=== PATIENT | male | born 1935 | race Caucasian/White ===

== ENCOUNTER 2018-12-20 05:44 | Inpatient (IN) | payer MEDICARE ==
[2018-12-19 14:31] VITALS: BMI 28.5
[2018-12-20 06:55] LABS: Anion Gap 13 mmol/L (10-20); BUN (Urea Nitrogen) 16 mg/dL (8.4-25.7); Calc. Creatinine Clearance 84 mL/min (70-130); Calcium 9.2 mg/dL (7.8-10.44); Carbon Dioxide 24 mmol/L (23-31); Chloride 105 mmol/L (98-107); Estimated GFR-MDRD 83; Glucose 92 mg/dL (83-110); Potassium 4.5 mmol/L (3.5-5.1); Sodium 137 mmol/L (136-145)
[2018-12-20 07:28] LABS: #Eosinphils 0.1 thou/uL (0.0-0.7); #Lymphocytes 1.7 thou/uL (1.20-3.40); #Monocytes 0.5 thou/uL (0.11-0.59); #Neutrophils 4.6 thou/uL (1.40-6.50); %Basophils 0.7 % (0.0-1.0); %Eosinophils 1.2 % (0.0-10.0); %Lymphocytes 25.1 % (21.0-51.0); %Monocytes 6.8 % (0.0-10.0); %Neutrophils 66.2 % (42.0-75.0); Hemoglobin 16.7 g/dL (14.0-18.0); MDiff Complete? YES; Macrocytosis SLIGHT = 6-15 cells (100X) (0-5/hpf); Mean Corpuscular HGB CONC 33.3 g/dL (32.0-36.0); Mean Corpuscular Hemoglobin 33.5 pg (27.0-31.0); Mean Platelet Volume 7.3 fL (7.4-10.4); Platelet Count 118 thou/uL (130-400); Platelet Morphology Comment Appears Decreased; RBC Distribution Width 11.5 % (11.5-14.5); Red Blood Cell (RBC) Count 4.99 mill/uL (4.70-6.10); Small Platelets SLIGHT; White Blood Cell (WBC) Count 6.9 thou/uL (4.8-10.8)
[2018-12-20] MEDS ORDERED: Heparin 5,000 UNITS/ML VIAL ONE (09:45)
[2018-12-20] MEDS ORDERED: Protamine Sulfate 50 MG/5 ML VIAL ONE (09:45)
[2018-12-20] MEDS ORDERED: Iopamidol 370 76% 50 ML VIAL FS ONE (09:51)
[2018-12-20] MEDS ORDERED: Fentanyl 100 MCG/2 ML VIAL ONE ×3 (10:17→15:22)
[2018-12-20] MEDS ORDERED: Phenylephrine HCL 10 MG/ML VIAL ONE (10:17)
--- NOTE | 2018-12-20 10:18 | OP ---
DATE OF PROCEDURE: 12/20/2018 PREOPERATIVE DIAGNOSES: Severe peripheral artery disease, right leg with rest pain and nonhealing ulcer. PROCEDURE PERFORMED: Right lower extremity arteriography. ANESTHESIA: 1% lidocaine. DESCRIPTION OF PROCEDURE: After prepping and draping the left groin, ultrasound-guided puncture of the common femoral artery was carried out. Wire was passed. Contra catheter advanced into the aorta and then the wire directed into the right iliac system, where the Contra catheter was advanced into the right common femoral artery. Following this, runoff of the right leg was obtained with multiple injections. FINDINGS: The patient's superficial femoral artery was occluded at its origin and essentially did not reconstitute. There was very faint visualization of an infrapopliteal artery with a peroneal artery that appeared to go about to the mid calf. At which point, it could not be visualized and similarly with an anterior tibial. The posterior tibial was not visualized and no vessels could be visualized at the foot due to the very minimal flow. Following this, the catheter was removed over a wire, sheath removed, pressure held, and the patient tolerated the procedure well with a 2.8 minutes of fluoroscopy and 28 mL of contrast. Job ID: [id number]
[2018-12-20] MEDS ORDERED: Heparin 10,000 UNITS/ 10 ML VIAL ONE (13:43)
[2018-12-20] MEDS ORDERED: PROPOFOL 200 MG/20 ML VIAL ONE (13:43)
[2018-12-20] MEDS ORDERED: Lidocaine 1% PF 5 ML VIAL ONE (13:43)
[2018-12-20] MEDS ORDERED: Ondansetron PF 4 MG/2 ML Vial ONE (13:43)
[2018-12-20] MEDS ORDERED: Glycopyrrolate 0.2 MG/ML 5 ML SYRINGE ONE (13:43)
[2018-12-20] MEDS ORDERED: PHENYLEPHRINE-NS 100 MCG/ML 10 ML SYRINGE ONE (13:43)
[2018-12-20] MEDS ORDERED: Rocuronium Bromide 10 MG/ML (10ML VIAL) ONE (13:43)
[2018-12-20] MEDS ORDERED: Promethazine HCl 25 MG/ML VIAL SLOW IVP PRN (14:12)
[2018-12-20] MEDS ORDERED: HYDROmorphone 2 MG/ML VIAL SLOW IVP PRN (14:12)
[2018-12-20] MEDS ORDERED: Promethazine HCl 25 MG/ML VIAL IM PRN (14:12)
[2018-12-20] MEDS ORDERED: hydrALAZINE 20 MG/ML VIAL ONE (15:08)
[2018-12-20] MEDS ORDERED: Ondansetron PF 4 MG/2 ML Vial IVP PRN (16:55)
[2018-12-20] MEDS ORDERED: Insulin Regular 300 UNITS/3 ML VIAL SC PRN (16:55)
[2018-12-20] MEDS ORDERED: Nitroglycerin 0.4 MG TAB (25 Tab Bottle) SL PRN (16:55)
[2018-12-20] MEDS ORDERED: hydrALAZINE 20 MG/ML VIAL SLOW IVP PRN (16:55)
[2018-12-20] MEDS ORDERED: Sodium Chloride 0.9% 1,000 ML IV SCH (16:55)
[2018-12-20] MEDS: Ketorolac Tromethamine 30 MG/ML VIAL IVP PRN ×2 (18:11→23:28)
[2018-12-20] MEDS: traMADol HCl 50 MG TAB PO PRN (21:22)
[2018-12-20] MEDS: Pregabalin 75 MG CAP PO SCH (21:23)
[2018-12-20] MEDS: Acetaminophen 325 MG TAB PO PRN (21:23)
[2018-12-20] MEDS: busPIRone HCl 5 MG TAB PO SCH (21:24)
[2018-12-20] MEDS: Tamsulosin HCl 0.4 MG CAP PO SCH (21:24)
[2018-12-20] MEDS: Fentanyl 100 MCG/2 ML VIAL SLOW IVP PRN ×2 (21:58→23:43)
[2018-12-20] MEDS: Cepastat Lozenges 1 LOZ PO PRN (23:49)
[2018-12-21] MEDS: Acetaminophen 325 MG TAB PO PRN ×2 (00:57→10:30)
[2018-12-21] MEDS: Cepastat Lozenges 1 LOZ PO PRN (00:58)
[2018-12-21] MEDS: Fentanyl 100 MCG/2 ML VIAL SLOW IVP PRN (03:22)
[2018-12-21] MEDS: traMADol HCl 50 MG TAB PO PRN ×3 (05:42→20:29)
[2018-12-21 06:43] LABS: #Eosinphils 0.1 thou/uL (0.0-0.7); #Lymphocytes 1.4 thou/uL (1.20-3.40); #Monocytes 0.6 thou/uL (0.11-0.59); #Neutrophils 3.9 thou/uL (1.40-6.50); %Basophils 0.4 % (0.0-1.0); %Eosinophils 1.5 % (0.0-10.0); %Lymphocytes 22.7 % (21.0-51.0); %Monocytes 9.3 % (0.0-10.0); %Neutrophils 66.1 % (42.0-75.0); Hemoglobin 14.6 g/dL (14.0-18.0); Mean Corpuscular HGB CONC 32.9 g/dL (32.0-36.0); Mean Platelet Volume 7.2 fL (7.4-10.4); Platelet Count 103 thou/uL (130-400); RBC Distribution Width 11.3 % (11.5-14.5); Red Blood Cell (RBC) Count 4.42 mill/uL (4.70-6.10)
[2018-12-21 06:50] LABS: Anion Gap 9 mmol/L (10-20); BUN (Urea Nitrogen) 12 mg/dL (8.4-25.7); Calc. Creatinine Clearance 71 mL/min (70-130); Calcium 8.4 mg/dL (7.8-10.44); Carbon Dioxide 26 mmol/L (23-31); Chloride 107 mmol/L (98-107); Estimated GFR-MDRD 68; Glucose 104 mg/dL (83-110); Potassium 4.2 mmol/L (3.5-5.1); Sodium 138 mmol/L (136-145)
[2018-12-21] MEDS: Pregabalin 75 MG CAP PO SCH ×2 (08:22→20:24)
[2018-12-21] MEDS: Aspirin Chewable 81 MG TAB PO SCH (08:23)
[2018-12-21] MEDS: busPIRone HCl 5 MG TAB PO SCH ×2 (08:23→20:22)
[2018-12-21] MEDS: Tamsulosin HCl 0.4 MG CAP PO SCH ×2 (08:23→20:25)
[2018-12-21] MEDS: Lisinopril 2.5 MG TAB PO SCH (08:23)
[2018-12-21] MEDS: Ketorolac Tromethamine 30 MG/ML VIAL IVP PRN (08:25)
--- NOTE | 2018-12-21 08:26 | OP ---
DATE OF PROCEDURE: 12/20/2018 PREOPERATIVE DIAGNOSIS: Peripheral artery disease, right lower extremity. PROCEDURE PERFORMED: Right femoral to infrageniculate popliteal artery bypass with non-reversed saphenous vein. ANESTHESIA: General. ESTIMATED BLOOD LOSS: 100. DESCRIPTION OF PROCEDURE: After adequate anesthesia had been obtained, ultrasound had been used to zenia the leg. Saphenous vein was exposed just above the knee and then, the incision below the knee medially was used to expose the vein as well as expose the popliteal artery. Following this, endovascular vein harvest of the saphenous vein was performed up to the groin. At which time, a right groin incision was made and the common femoral artery was dissected out. There were significant inflammatory changes in this region. After dissecting out the common femoral artery, no attempt was made to isolate the profunda or superficial femoral artery. Saphenous vein was ligated at the saphenofemoral junction and then, the vein removed and the branches were tied. Following this, a valvulotome was used to disrupt the valves. The infrageniculate incision was then explored and posterior to the knee, a tunnel was created and connected with the incision just above the knee, mobilizing the muscle to allow the vein to pass posterior to the knee over the top of the muscle. Following this, the patient was heparinized and the vein was anastomosed proximally on the common femoral artery with a running 6-0 Prolene suture. It was then passed through the tunnel with a tunneler keeping the vein oriented. It was then passed posterior to the knee where the distal anastomosis was then completed to the popliteal artery. Following completion of this, there was a good pulse in the popliteal artery. Heparin was partially reversed with protamine. The wounds were irrigated and closed in layers. The patient is to be taken to the recovery room in guarded condition. Job ID: [id number]
[2018-12-21] MEDS ORDERED: Prevnar 13-Val Conj/PF 0.5 ML SYRINGE IM ONE (09:00)
[2018-12-22 06:15] LABS: #Eosinphils 0.2 thou/uL (0.0-0.7); #Lymphocytes 1.3 thou/uL (1.20-3.40); #Monocytes 0.5 thou/uL (0.11-0.59); #Neutrophils 4.2 thou/uL (1.40-6.50); %Basophils 0.2 % (0.0-1.0); %Eosinophils 2.9 % (0.0-10.0); %Lymphocytes 20.5 % (21.0-51.0); %Monocytes 7.9 % (0.0-10.0); %Neutrophils 68.5 % (42.0-75.0); Hemoglobin 14.4 g/dL (14.0-18.0); Mean Corpuscular Hemoglobin 33.6 pg (27.0-31.0); Mean Platelet Volume 7.4 fL (7.4-10.4); Platelet Count 99 thou/uL (130-400); RBC Distribution Width 11.4 % (11.5-14.5); Red Blood Cell (RBC) Count 4.29 mill/uL (4.70-6.10); White Blood Cell (WBC) Count 6.1 thou/uL (4.8-10.8)
[2018-12-22 06:33] LABS: Anion Gap 11 mmol/L (10-20); BUN (Urea Nitrogen) 11 mg/dL (8.4-25.7); Calc. Creatinine Clearance 86 mL/min (70-130); Calcium 8.6 mg/dL (7.8-10.44); Carbon Dioxide 25 mmol/L (23-31); Chloride 106 mmol/L (98-107); Estimated GFR-MDRD 85; Glucose 99 mg/dL (83-110); Potassium 4.4 mmol/L (3.5-5.1); Sodium 138 mmol/L (136-145)
[2018-12-22 07:38] VITALS: BP 149/77; TEMP 97.7
[2018-12-22] MEDS: Pregabalin 75 MG CAP PO SCH (08:17)
[2018-12-22] MEDS: busPIRone HCl 5 MG TAB PO SCH (08:17)
[2018-12-22] MEDS: Aspirin Chewable 81 MG TAB PO SCH (08:17)
[2018-12-22] MEDS: Lisinopril 2.5 MG TAB PO SCH (08:18)
[2018-12-22] MEDS: Tamsulosin HCl 0.4 MG CAP PO SCH (08:18)
--- NOTE | 2018-12-22 09:16 | DIS ---
DATE OF ADMISSION: 12/20/2018 DATE OF DISCHARGE: 12/22/2018 HOSPITAL COURSE: This is an 83-year-old gentleman with ischemic rest pain in his foot on the right. He had [facility] however, review of these films did not demonstrate any bypassable target. He underwent CT scanning in [place] and this showed faint visualization of a popliteal and proximal peroneal and proximal anterior tibial, but runoff was not clearly documented. He was therefore brought to the hospital, where he underwent angiography of the right leg demonstrating a slow fill of his popliteal, peroneal, and anterior tibial to the mid distal calf. Posterior tibial never visualized. He was taken to the operating room that same day, where he underwent a right femoral to infrageniculate popliteal artery bypass with non-reversed saphenous vein. Postoperatively, he had a weak, but present palpable dorsalis pedis pulse suggesting the anterior tibial, it was possibly patent into the foot or had good collateral flow. He will be discharged today on 12/22, on his admitting medicines and a prescription for tramadol will be sent to his pharmacy in [place]. Discharge and followup instructions have been given and wound care instructions as well. Job ID: [id number]
== END 2018-12-22 10:35 | disposition home or self-care (01) | DRG 254 ==
LOC: CCL 05:44 → SURG B 15:17
PROVIDERS: ADMIT Thoracic Surgery (Cardiothoracic Vascular Surgery); ATTEND Thoracic Surgery (Cardiothoracic Vascular Surgery)
PROC: 041K09L Bypass Right Femoral Artery to Popliteal Artery with Autologous Venous Tissue, Open Approach (ICD-10-PCS; principal; 2018-12-20)
PROC: 06BP0ZZ Excision of Right Saphenous Vein, Open Approach (ICD-10-PCS; 2018-12-20)
PROC: B41F1ZZ Fluoroscopy of Right Lower Extremity Arteries using Low Osmolar Contrast (ICD-10-PCS; 2018-12-20)
DX: I70.221 Atherosclerosis of native arteries of extremities with rest pain, right leg (principal); M21.372 Foot drop, left foot; M21.371 Foot drop, right foot; I10 Essential (primary) hypertension; Z88.5 Allergy status to narcotic agent; Z88.7 Allergy status to serum and vaccine; Z88.8 Allergy status to other drugs, medicaments and biological substances; Z79.82 Long term (current) use of aspirin; J44.9 Chronic obstructive pulmonary disease, unspecified; N40.0 Benign prostatic hyperplasia without lower urinary tract symptoms; Z85.118 Personal history of other malignant neoplasm of bronchus and lung; Z85.828 Personal history of other malignant neoplasm of skin; M19.90 Unspecified osteoarthritis, unspecified site; Z98.1 Arthrodesis status; Z90.2 Acquired absence of lung [part of]; Z90.79 Acquired absence of other genital organ(s)
CPT/HCPCS: 36415; 36416; 75710; 76942; 80048; 85025; 86850; 86900; 86901; C1769; J0360; J1644; J1885; J2001; J2370; J2405; J2704; J2720; J3010; Q9967

== ENCOUNTER 2019-11-10 09:28 | Outpatient (CLI) | payer MEDICARE ==
--- NOTE | 2019-11-10 11:49 | PET ---
Radionucleotide PET scan with CT attenuation correction HISTORY: Left upper lobe lung cancer. New mass. Restaging. COMPARISON: 03/10/2016. FINDINGS: Physiologic uptake of radiotracer throughout the enteric system and along each urinary trac t. Lobular, somewhat ill-defined solid mass within the posterior aspect of the right upper lobe is 3.6 c m x 2.7 cm greatest diameters. Maximum SUV 19.6. At the anterior lateral aspect of the right lung apex, a linear area of nonmass-like hypermetabolic activity shows a maximum SUV of 5.5. Multiple enlarged hypermetabolic lymph nodes. Prevascular 20.3 and 25.6. Pretracheal 23.8. Right hilum 9.7. Right supraclavicular 8.3. Right paratracheal 23.8. Within the dome of the liver is an ill-defined hypodense mass estimated at 6.3 cm diameter. Hypermeta bolic activity maximum SUV 32.5. Borderline enlarged right peripancreatic lymph node just posterior to the pancreatic neck shows maxim um actually 5.7. Borderline enlarged lymph node immediately posterior to the second portion duodenum maximum SUV 4.1. Prominent calcification throughout the arterial structures. Diverticula of the colon without adjacent inflammation. IMPRESSION: Large hypermetabolic masses of the long right upper lobe and the liver. It is not clear w hich is the primary and which is the metastatic disease. The liver lesion would be amenable to CT-guided biopsy if needed. Neoplastic adenopathy of the mediastinum and central abdomen. Atherosclerosis. Diverticulosis.
== END 2019-11-10 09:29 | disposition home or self-care (01) ==
LOC: PET 09:28
PROVIDERS: ATTEND Internal Medicine Hematology & Oncology
DX: C34.12 Malignant neoplasm of upper lobe, left bronchus or lung (principal); R91.8 Other nonspecific abnormal finding of lung field; R16.0 Hepatomegaly, not elsewhere classified; I70.0 Atherosclerosis of aorta; K57.30 Diverticulosis of large intestine without perforation or abscess without bleeding; R59.0 Localized enlarged lymph nodes
CPT/HCPCS: 78815; A9552

== ENCOUNTER 2019-12-08 08:39 | Day surgery (SDC) | payer MEDICARE ==
[2019-12-07 14:23] VITALS: BMI 28.6
[2019-12-08 09:07] LABS: PTT 33.3 SEC (22.9-36.1); Prothrombin Time 13.6 SEC (12.0-14.7)
[2019-12-08] MEDS ORDERED: Fentanyl 100 MCG/2 ML VIAL ONE (09:53)
[2019-12-08] MEDS ORDERED: Midazolam HCl 2 mg/2 ml Vial ONE (09:53)
[2019-12-08] MEDS ORDERED: Sodium Bicarbonate 2.5 MEQ/5 ML VIAL ONE (09:54)
[2019-12-08 10:08] LABS: #Basophils 0.1 thou/uL (0.0-0.2); #Eosinphils 1.5 thou/uL (0.0-0.7); #Lymphocytes 1.5 thou/uL (1.20-3.40); #Monocytes 0.7 thou/uL (0.11-0.59); #Neutrophils 6.7 thou/uL (1.40-6.50); %Basophils 0.5 % (0.0-1.0); %Eosinophils 13.9 % (0.0-10.0); %Lymphocytes 14.7 % (21.0-51.0); %Monocytes 6.7 % (0.0-10.0); %Neutrophils 64.2 % (42.0-75.0); Hemoglobin 16.2 g/dL (14.0-18.0); Mean Corpuscular HGB CONC 32.8 g/dL (32.0-36.0); Mean Corpuscular Hemoglobin 30.7 pg (27.0-31.0); Mean Corpuscular Volume 93.7 fL (78.0-98.0); Mean Platelet Volume 7.4 fL (7.4-10.4); Platelet Count 128 thou/uL (130-400); RBC Distribution Width 12.9 % (11.5-14.5); Red Blood Cell (RBC) Count 5.29 mill/uL (4.70-6.10); White Blood Cell (WBC) Count 10.4 thou/uL (4.8-10.8)
--- NOTE | 2019-12-08 11:09 | RAD ---
Chest 2 views inspiratory X. Bill HISTORY: Biopsy. Lung mass. COMPARISON: 11/02/2019. FINDINGS: Cardiac silhouette is magnified by projection. Extensive postoperative changes of left galen thorax with atelectasis at the left base. Lobular mass at the right lower lobe is evident. No evidence of pneumothorax.
--- NOTE | 2019-12-08 13:01 | RAD ---
XR Chest Insp/Exp History: Liver biopsy. Possible pneumothorax. Comparison: Radiograph same day Findings: No significant pneumothorax is appreciated. Right lung mass is similar. Small left effusion . Impression: No pneumothorax appreciated.
--- NOTE | 2019-12-08 14:30 | CT ---
CT-guided liver mass biopsy Conscious sedation: At least 40 minutes were spent with the patient for the conscious sedation proced ure. HISTORY: Liver mass. Lung mass. Lung cancer. FINDINGS: After explaining the procedure and answering all questions, the subtle hypoechoic mass with in the liver was again visualized with CT. Sterile technique, buffered local anesthesia, CT guidance, conscious sedation, and the right lateral approach were used to carefully advance a 17-gaug e trocar needle into the heterogeneous liver mass. Position was confirmed with CT. A total of 3 18-gauge core biopsy specimens were obtained and submitted to Dr. Castellanos from pathology fo r confirmation of specimen adequacy. Needle was removed. No evidence of complication. Patient tolerated the procedure well and was eventua lly dismissed in good condition. IMPRESSION: Technically successful CT-guided liver mass biopsy. Pathology is pending.
== END 2019-12-08 13:10 | disposition home or self-care (01) ==
LOC: RAD 08:39
PROVIDERS: ATTEND Internal Medicine Hematology & Oncology
PROC: 0FB13ZX Excision of Right Lobe Liver, Percutaneous Approach, Diagnostic (ICD-10-PCS; principal; 2019-12-08)
DX: C78.7 Secondary malignant neoplasm of liver and intrahepatic bile duct (principal); C34.12 Malignant neoplasm of upper lobe, left bronchus or lung; J44.9 Chronic obstructive pulmonary disease, unspecified; I10 Essential (primary) hypertension; I25.10 Atherosclerotic heart disease of native coronary artery without angina pectoris; E78.00 Pure hypercholesterolemia, unspecified; E78.5 Hyperlipidemia, unspecified; M21.372 Foot drop, left foot; M21.371 Foot drop, right foot; G62.9 Polyneuropathy, unspecified; M19.90 Unspecified osteoarthritis, unspecified site; Z79.02 Long term (current) use of antithrombotics/antiplatelets; Z79.82 Long term (current) use of aspirin; Z90.2 Acquired absence of lung [part of]
CPT/HCPCS: 36415; 47000; 71045; 77002; 85025; 85610; 85730; 88307; 88333; 88334; 88341; 88342; J2250; J3010

== ENCOUNTER 2020-04-26 08:08 | Outpatient (CLI) | payer MEDICARE ==
--- NOTE | 2020-04-29 14:16 | CT ---
EXAM: CT of the chest with contrast CT of the abdomen with contrast HISTORY: Malignant neoplasm of the upper lobe of the left lung COMPARISON: PET CT 11/10/2019 TECHNIQUE: 1. Multiple contiguous axial images were obtained in a CT the chest with contrast. Coronal and sagitt al reformats were performed. 2. Multiple contiguous axial images were obtained and a CT of the abdomen only with contrast. Oral co ntrast was administered. Coronal and sagittal reformats were performed. FINDINGS: CT CHEST: HEART: Normal in size without focal cardiac abnormality. There is a small amount of pericardial fluid . MEDIASTINUM: No hilar or mediastinal lymphadenopathy. LUNGS: Emphysematous changes are seen in the lung apices. Scarring is seen in the lung apices. In the right apex, there are 2 areas of nodularity amongst this area spiculation measuring up to 10 mm in size. These demonstrated hypermetabolic activity on recent PET/CT. There is a 2.0 cm spiculated regio n in the right upper lobe. This is smaller than it was on the prior PET/CT. There is a well-circumscribed 10 mm area of peripheral nodularity on image 36 of 104 in the right upper lobe. Po stsurgical changes are seen in the left hilar region. PLEURAL SPACE: No pneumothorax or pleural effusion. CHEST WALL SOFT TISSUES: Unremarkable CT ABDOMEN: ABDOMEN: LIVER: 3.0 cm hypodense region near the dome of the liver is slightly smaller than on the prior PET/C T. This is the region where the hypermetabolic lesion was seen. Other well-circumscribed lesions measuring up to 3.2 cm in size represent cysts. BILE DUCTS: Normal caliber. GALLBLADDER: Removed PANCREAS: within normal limits. SPLEEN: within normal limits. ADRENALS: within normal limits. KIDNEYS: 3.2 cm right renal cyst. 1.4 cm left renal cyst. PERITONEUM: No ascites or free air, no fluid collection. BOWEL: Normal caliber. Scattered diverticula in the colon. MESENTERY AND RETROPERITONEUM: No enlarged mesenteric or retroperitoneal lymph nodes. VESSELS: Atherosclerotic calcifications. ABDOMINAL WALL: within normal limits. OSSEOUS STRUCTURES: Degenerative changes in the spine. Postsurgical changes in the lumbar spine. IMPRESSION: 1. Decreased size of right upper lobe pulmonary mass 2. Decreased size of hepatic mass 3. Bilateral renal cysts 4. Diverticulosis 5. Hepatic cysts 6. Nonspecific right upper lobe pulmonary nodules. A follow-up CT is recommended to evaluate for stab ility. Transcribed Date/Time: 04/29/2020 2:16 PM
== END 2020-04-26 08:09 | disposition home or self-care (01) ==
LOC: SCSCT 08:08
PROVIDERS: ATTEND Internal Medicine Hematology & Oncology
DX: C34.12 Malignant neoplasm of upper lobe, left bronchus or lung (principal); C78.7 Secondary malignant neoplasm of liver and intrahepatic bile duct; R91.8 Other nonspecific abnormal finding of lung field; N28.1 Cyst of kidney, acquired; K76.89 Other specified diseases of liver; K57.30 Diverticulosis of large intestine without perforation or abscess without bleeding
CPT/HCPCS: 71260; 74160; 82565

== ENCOUNTER 2020-07-02 01:01 | Inpatient (IN) | payer MEDICARE ==
--- NOTE | 2020-07-02 02:38 | PDOC.HHP ---
Hospitalist HPI - History of Present Illness Stoke-like symptoms History of Present Illness: PCP: Dr. Brody ([facility]) Insurance Claims Representative: Dr. Harper Oncologist: Dr. Wiggins The patient is an 85-year-old male with a past medical history significant for coronary artery disease x1 stent, hypertension, COPD, stage IV lung cancer with metastasis to the liver (last treated 8 years ago) that presents as a transfer via EMS from [facility] for the above complaint. Apparently, the patient was seen at the [facility] ER the morning prior to admission (07/01 AM) for chest pain. EKG and labs were unremarkable and the patient was discharged home. Then, after eating a large dinner that same evening, around 1999, the patient ambulated to the bathroom without assistance to have a bowel movement. While on the toilet, the patient began to feel dizzy , "like I was going to pass out", with associated nausea, slurred speech and bilateral upper extremity tremors. His son was unable to assist him up from the toilet. His son called EMS and the patient was taken to [facility] in [place]. Initial NIH score was 9, CT head negative for any acute process. CT C-spine was negative. UA unremarkable. UDS positive for opiates, troponin 0 0.02, sodium 124, lactic acid 3.4, TSH 18.58, mag 1.9. Patient was given 1 L normal saline, Tylenol and Narcan. Prior to transfer, patient's NIH 1. Patient was transferred to [facility] in [place]. ED Course: VITAL SIGNS WedJul 02, 2020 01:02 RAAD Marrero Jordan BP: 127/60, MAP: 82, Pulse: 69, Resp: 13, Temp: 98.4 (Oral), Pain: 0, Time: 2019 01:02. VITAL SIGNS WedJul 02, 2020 01:09 RAAD Marrero Jordan O2 sat: 96 on (Room Air), Time: 07/02/2020 01:09. No medication administration. Patient received full dose aspirin on 07/01 in the morning [address] [facility] ER. Hospitalist ROS - Review of Systems Constitutional: denies: fever, chills Eyes: reports: vision change (Blurred vision). denies: redness ENT: denies: ear pain, nose discharge, nose congestion, throat pain Respiratory: denies: cough, shortness of breath, SOB with excertion, sputum, wheezing Cardiovascular: reports: light headedness (Described as dizziness denies vertigo ). denies: chest pain, palpitations, edema Gastrointestinal: reports: nausea. denies: vomiting, abdominal pain, diarrhea, constipation, melena, hematochezia Genitourinary: denies: dysuria, hematuria Musculoskeletal: denies: neck pain, shoulder pain Skin: denies: rash Neurological: reports: weakness (Generalized), change in speech (Dysarthria). denies: seizures All other systems reviewed; all pertinent +/- noted in HPI/Subj - Medication Medications: albuterol WedJul 02, 2020 01:31 RAAD Marrero Jordan aerosol : Strength - 90 mcg : INHALATION Patient Dose: Unknown. aspirin oral WedJul 02, 2020 01:31 RAAD Marrero Jordan tablet : Strength - 81 mg : ORAL Patient Dose: Unknown. busPIRone WedJul 02, 2020 01:32 RAAD Marrero Jordan tablet : Strength - 15 mg : ORAL Patient Dose: Unknown. clopidogrel WedJul 02, 2020 01:32 RAAD Marrero Jordan tablet : Strength - 75 mg : ORAL Patient Dose: Unknown. dextromethorphan-guaifenesin WedJul 02, 2020 01:33 RAAD Marrero Jordan syrup : Strength - 100 mg-10 mg/5 mL : ORAL Patient Dose: Unknown. lisinopril WedJul 02, 2020 01:34 RAAD Marrero Jordan tablet : Strength - 2.5 mg : ORAL Patient Dose: Unknown. midodrine WedJul 02, 2020 01:34 RAAD Marrero Jordan tablet : Strength - 2.5 mg : ORAL Patient Dose: Unknown. nitroglycerin sublingual WedJul 02, 2020 01:34 RAAD Marrero Jordan tablet, sublingual : Strength - 0.4 mg : SUBLINGUAL Patient Dose: Unknown. Miralax WedJul 02, 2020 01:35 RAAD Marrero Jordan powder : Strength - 17 gram/dose : ORAL Patient Dose: Unknown. ranolazine WedJul 02, 2020 01:35 RAAD Marrero Jordan tablet extended release 12 hr : Strength - 1,000 mg : ORAL Patient Dose: Unknown. tamsulosin WedJul 02, 2020 01:36 RAAD Marrero Jordan capsule : Strength - 0.4 mg : ORAL Patient Dose: Unknown. Allergies: celecoxib, isosorbide, morphine, nitrofurantoin, TETAN,DIPTHERIA TOXOID Hospitalist History - Past Medical History Source: patient, RN notes reviewed, other (Records from [facility] Na[facility]ra and [facility]) Other Medical History: MEDICAL HISTORY WedJul 02, 2020 01:16 RAAD Marrero Jordan Notes: LUNG CANCER. LIVER CANCER. CAD x 1, HTN, GERD, BPH, PAD x 3, Peripheral Neuropathy, angina, COPD MALE SURGICAL HISTORY WedJul 02, 2020 01:17 RADA Marrero Jordan STENT IN R. LEG. 3 IN LEFT LEG, ONE IN HEART. BACK SXx3., Surgical history of cholecystectomy. ROBER lobectomy, Left cataract sx, orchiectomy. PSYCHIATRIC HISTORY WedJul 02, 2020 01:19 RAAD Marrero Jordan Psychiatric history includes, anxiety. SOCIAL HISTORY WedJul 02, 2020 01:19 RAAD Marrero Jordan Patient denies alcohol use, Patient denies drug use, Patient is a former tobacco user, Patient quit smoking in 1985. Smoking Status-Former. Lives alone at home, ambulates with Roller walker. Does not work. FAMILY HISTORY: Non contributory to this case. - Exam General Appearance: NAD, awake alert. negative: ill appearing Eye: anicteric sclera Eye - other findings: Horizontal nystagmus of the left eye ENT: normocephalic atraumatic, dry oral mucosa Neck: supple, symmetric, no JVD Heart: no murmur, no gallops, no rubs, normal peripheral pulses, irregular Heart - other findings: EKG normal sinus rhythm with PACs Respiratory: CTAB, no wheezes, no rales, no ronchi, normal chest expansion, no tachypnea Gastrointestinal: soft, non-tender, normal bowel sounds, no bruit, no guarding, no rigidity, distended Extremities: no cyanosis, no edema Skin: no rashes Neurological: cranial nerve grossly intact Neurological - other findings: Int. slurring of speech, bilateral lower extremities 3/5 power scale Musculoskeletal: generalized weakness, diffuse muscle atrophy (Bilateral lower extremities) Psychiatric: normal affect, A&O x 3 Hospitalist Results - Labs Result Diagrams: 07/02/20 04:02 07/02/20 19:01 Additional comment: UDS positive for opiates UA unremarkable Troponin 0 0.02 Sodium 124, potassium 3.9, chloride 92, CO2 23, BUN 9, creatinine 0.93, glucose 113, calcium 8.8, mag 1.9, COVID negative Lactic acid 3.4, TSH 18.58 - EKG Interpretation EKG: Normal sinus rhythm with PACs - Radiology Interpretation CT scan - head Status: report reviewed by me Hospitalist H&P A/P - Problem (1) Near syncope Status: Acute Assessment and Plan: Admit the patient to the stroke unit, observation status. Expected length of stay less than 2 midnights. Patient received as transfer from [facility], to rule out CVA. Patient presented as an NIH on 9 and a transfer NIH and 1. CT brain and C-spine negative for any acute process. Will order MRI, carotid Doppler, echocardiogram.Will consult neurology and stroke team. Will get fasting lipid profile PT/INR and serum cortisol level. Continue aspirin. (2) General weakness Code(s): R53.1 - WEAKNESS Status: Acute Assessment and Plan: Unclear etiology at this time. Likely multifactorial. (3) Hyponatremia Code(s): E87.1 - HYPO-OSMOLALITY AND HYPONATREMIA Status: Acute Assessment and Plan: Patient presented with a serum sodium of 124. Unknown baseline. Will get serum and urine osmolality, urine sodium, TSH and cortisol level. Patient did receive 1 L of normal saline prior to transfer from [facility] ER. Lab results will dictate medical course. (4) Lactic acidosis Code(s): E87.2 - ACIDOSIS Status: Acute Assessment and Plan: Patient presented with a lactic acid of 3.4. Stable VS, unclear etiology at this time. Will repeat LA level, get blood CX, give IVF and antibiotics empirically for now. (5) Hypothyroidism Code(s): E03.9 - HYPOTHYROIDISM, UNSPECIFIED Status: Chronic Assessment and Plan: TSH 18.58 at [facility]. Patient has history of hypothyroidism and takes levothyroxine 50 mcg per day. Patient reports restarting his home medication 3 months prior. Reports being compliant with medication regimen. Will restart patient's home dose of levothyroxine and check free T4 level (6) CAD (coronary artery disease) Code(s): I25.10 - ATHSCL HEART DISEASE OF [place] CORONARY ARTERY W/O ANG PCTRS Status: Chronic Assessment and Plan: Stable. Patient has 1 stent. Takes aspirin, Plavix and Ranexa. Will restart patient's home medications when reconciled by nursing. (7) COPD (chronic obstructive pulmonary disease) Status: Chronic Assessment and Plan: Stable. Will add duo nebs PRN (8) History of lung cancer Code(s): Z85.118 - PERSONAL HISTORY OF MALIGNANT NEOPLASM OF BRONCHUS AND LUNG Status: Chronic (9) GERD (gastroesophageal reflux disease) Code(s): K21.9 - GASTRO-ESOPHAGEAL REFLUX DISEASE WITHOUT ESOPHAGITIS Status: Chronic Assessment and Plan: Stable. Will give Protonix scheduled - Plan Plan: SCDs for DVT prophylaxis. Protonix for GI prophylaxis. Full code. JUANY is his son, Navneet Irvin at [phone]. Discussed the case with Dr. Roberts.
[2020-07-02] MEDS ORDERED: Senokot S 8.6-50 MG TAB PO PRN (03:21)
[2020-07-02] MEDS ORDERED: Calcium Carbonate 500 MG ChewTAB PO PRN (03:21)
[2020-07-02] MEDS ORDERED: Acetaminophen 650 MG Suppository PR PRN (03:21)
[2020-07-02] MEDS ORDERED: Ondansetron PF 4 MG/2 ML Vial IVP PRN (03:21)
[2020-07-02] MEDS ORDERED: Ondansetron ODT 4 MG TAB PO PRN (03:21)
[2020-07-02] MEDS ORDERED: hydrALAZINE 20 MG/ML VIAL SLOW IVP PRN (03:24)
[2020-07-02] MEDS ORDERED: Labetalol HCl 100 MG/20 ML VIAL SLOW IVP PRN (03:24)
[2020-07-02 03:37] VITALS: BMI 27.9
[2020-07-02] MEDS ORDERED: Sodium Chloride 0.9% 1,000 ML IV SCH ×2 (04:45→12:15)
[2020-07-02 05:11] LABS: ALT (SGPT) 18 U/L (8-55); AST (SGOT) 25 U/L (5-34); Albumin 3.2 g/dL (3.4-4.8); Alkaline Phosphatase 59 U/L (40-110); Anion Gap 13 mmol/L (10-20); BUN (Urea Nitrogen) 9 mg/dL (8.4-25.7); Bilirubin, Total 0.6 mg/dL (0.2-1.2); Calc. Creatinine Clearance 90 mL/min (70-130); Calcium 8.3 mg/dL (7.8-10.44); Carbon Dioxide 21 mmol/L (23-31); Cardiac Risk 5.4 (Less than 4.5); Chloride 94 mmol/L (98-107); Cholesterol 173 mg/dl (< 200 Desired); Estimated GFR-MDRD Greater than 90; Globulin 2.5 g/dL (2.4-3.5); Glucose 89 mg/dL (83-110); HDL Cholesterol 32 mg/dL (>60 Neg Risk); LDL Cholesterol, Calculated 104 mg/dL; Potassium 4.1 mmol/L (3.5-5.1); Protein, Total 5.7 g/dL (5.8-8.1); Sodium 124 mmol/L (136-145); Triglycerides 187 mg/dL (Less than 150)
[2020-07-02 05:14] LABS: Prothrombin Time 13.7 sec (12.0-14.7)
[2020-07-02 05:41] LABS: Lactic Acid 2.2 mmol/L (0.5-2.2)
[2020-07-02] MEDS ORDERED: Vancomycin 1 GM in Premix Bag 1 BAG IVPB SCH (06:00)
[2020-07-02] MEDS ORDERED: Cefepime 1 GM in Sodium Chloride 0.9% 100 ML IVPB SCH ×2 (06:00→08:00)
[2020-07-02 06:29] LABS: #Eosinphils 0.1 thou/uL (0.0-0.7); #Lymphocytes 1.4 thou/uL (1.20-3.40); #Monocytes 0.4 thou/uL (0.11-0.59); #Neutrophils 2.7 thou/uL (1.40-6.50); %Basophils 0.9 % (0.0-1.0); %Eosinophils 3.1 % (0.0-10.0); %Lymphocytes 29.5 % (21.0-51.0); %Monocytes 8.3 % (0.0-10.0); %Neutrophils 58.2 % (42.0-75.0); Hemoglobin 12.8 g/dL (14.0-18.0); Mean Corpuscular HGB CONC 34.4 g/dL (32.0-36.0); Mean Corpuscular Hemoglobin 32.5 pg (27.0-31.0); Mean Corpuscular Volume 94.4 fL (78.0-98.0); Mean Platelet Volume 6.7 fL (7.4-10.4); Platelet Count 116 thou/uL (130-400); RBC Distribution Width 13.1 % (11.5-14.5); Red Blood Cell (RBC) Count 3.95 mill/uL (4.70-6.10); White Blood Cell (WBC) Count 4.7 thou/uL (4.8-10.8)
[2020-07-02] MEDS: Aspirin 81 mg Enteric Coated Tablet PO SCH (09:27)
[2020-07-02] MEDS: Clopidogrel Bisulfate 75 MG TAB PO SCH (09:27)
[2020-07-02] MEDS: Pantoprazole 40 MG VIAL IVP SCH (09:27)
[2020-07-02] MEDS: Acetaminophen 325 MG TAB PO PRN (09:27)
[2020-07-02] MEDS: Ezetimibe 10 MG TAB PO SCH (09:27)
--- NOTE | 2020-07-02 09:29 | ULT ---
BILATERAL CAROTID DUPLEX ULTRASOUND INCLUDING COLOR AND SPECTRAL DOPPLER IMAGING: HISTORY: CVA. FINDINGS: Extensive visible plaque, particularly in the distal right CCA and proximal right ICA with less marke d changed on the left side. Abnormal increased velocity in the distal right common carotid artery at 174 cm/s. PSV right ICA 87 cm/s. EDV 9 cm/s. ICA/CCA ratio 0.5. PSV left ICA 78 cm/s, EDV 14 cm/s. ICA/CCA ratio 1.1. Vertebral flow is antegrade. IMPRESSION: Focal abnormal increased velocity in the distal right CCA with extensive plaque. No evidence for oth er significant hemodynamically significant stenosis. Consider nonemergent followup CT angiogram neck for further assessment. POS: OFF
--- NOTE | 2020-07-02 10:22 | MRI ---
MRI BRAIN NONCONTRAST: DATE: 07/02/2020 HISTORY: 85-year-old male with acute stroke symptoms COMPARISON: None FINDINGS: There is no obstructive hydrocephalus. There is no midline shift or any other evidence of mass effect . There is no extra-axial fluid collection. There are mild chronic ischemic white matter changes due to microvascular atherosclerosis. There is otherwise no major intra-axial signal abnormality, rec ent hemorrhage, or restricted diffusion involving the brain. There is diffuse brain parenchymal volume loss. There is a 1.5 cm circumscribed mass with intermediate T1 and long T2 in the subcutaneou s fat of the left cheek, inferior and lateral to the left maxilla, which has strongly restricted diffusion, consistent with epidermoid/epidermal inclusion cyst. There is fluid signal throughout all or almost all of the left mastoid air cells, and at least some portions of left middle ear cavity, and involving most of the pneumatized left petrous air cells.. IMPRESSION: 1) diffuse cerebral involutional changes and mild chronic ischemic white matter changes. 2) no evidence of cerebral infarction or any other acute intracranial findings. 3) severe left mastoid effusion. 4) epidermal inclusion cyst in the left cheek.
[2020-07-02 12:49] LABS: Anion Gap 14 mmol/L (10-20); BUN (Urea Nitrogen) 7 mg/dL (8.4-25.7); Calc. Creatinine Clearance 92 mL/min (70-130); Calcium 8.1 mg/dL (7.8-10.44); Carbon Dioxide 18 mmol/L (23-31); Chloride 95 mmol/L (98-107); Estimated GFR-MDRD Greater than 90; Glucose 107 mg/dL (83-110); Potassium 3.8 mmol/L (3.5-5.1); Sodium 123 mmol/L (136-145)
--- NOTE | 2020-07-02 12:56 | PDOC.HOSPP ---
- Subjective Encounter Date: 07/02/20 Encounter Time: 08:00 Subjective: The patient states prior to admission he had weakness and was unable to get up from the chair. He states that he also had slurred speech which has now resolved. He takes aspirin and plavix at home. Never had a stroke before - Objective Vital Signs & Weight: Vital Signs (12 hours) Temp Pulse Resp BP Pulse Ox 07/02/20 11:39 97.4 F L 55 L 18 143/75 H 95 07/02/20 09:12 97.8 F 62 16 160/69 H 96 07/02/20 03:34 97.6 F 71 16 139/66 97 Weight Weight 206 lb I&O: 07/01/20 07/02/20 07/03/20 06:59 06:59 06:59 Output Total 200 500 Balance -200 -500 Result Diagrams: 07/03/20 04:35 07/03/20 04:35 Hospitalist ROS - Review of Systems Constitutional: denies: fever, chills - Medication Medications: Active Medications Generic Name Dose Route Start Last Admin Trade Name Gianni PRN Reason Stop Dose Admin Acetaminophen 650 mg 07/02/20 03:21 07/02/20 09:27 Tylenol PO 650 mg Q4H PRN Administration Headache/Fever/Mild Pain (1-3) Aspirin 81 mg 07/02/20 09:00 07/02/20 09:27 Ecotrin PO 81 mg DAILY JANNA Administration Clopidogrel Bisulfate 75 mg 07/02/20 09:00 07/02/20 09:27 Plavix PO 75 mg DAILY JANNA Administration Ezetimibe 10 mg 07/02/20 09:00 07/02/20 09:27 Zetia PO 10 mg DAILY JANNA Administration Pantoprazole Sodium 40 mg 07/02/20 09:00 07/02/20 09:27 Protonix IVP 40 mg DAILY JANNA Administration - Exam General Appearance: NAD, awake alert Eye: PERRL, anicteric sclera ENT: normocephalic atraumatic, no oropharyngeal lesions Neck: no JVD Heart: RRR, no murmur, no gallops, no rubs Respiratory: CTAB, no wheezes, no rales, no ronchi Gastrointestinal: soft, non-tender, non-distended, normal bowel sounds Extremities: no cyanosis, no clubbing, no edema Skin: normal turgor, no lesions, no rashes Neurological: cranial nerve grossly intact, normal sensation to touch, no focal deficits, no new deficit Neurological - other findings: Full ROM all four extremities. . Cannot plantar flex lower extremities Musculoskeletal: normal tone, normal strength, no muscle wasting Musculoskeletal - other findings: normal strength upper extremities, diminished lower ext due to neuropathy Psychiatric: normal affect, normal behavior, A&O x 3, not oriented Hosp A/P - Plan CTA chest: reviewed, CTA head/neck: critical stenosis proximal right ICA, severe stenosis at mid to distal right common carotid. New malignant activity at left hilum. 2 lesions in RUL corresponding to malignancy . New malignant activity left hilum Carotid doppler: extensive plaque right CCA MRI brain: severe left mastoid effusion This is an 85 year old male patient who presented with weakness and slurred speech, found to have right ICA stenosis TIA - possibly from severe right ICA stenosis -had slurred speech and weakness. MRI brain negative - PT/OT pending. Speech therapy cleared for diet - critical stenosis noted on CTA of right ICA, vascular surgery has been consulted Lung cancer - reportedly on keytruda per patient, last dose one week ago. Has new malignant activity left hilum on CTA - will consult oncology - check chest Xray Left mastoid effusion - noted incidentally on CT scan. No ear pain, though will discuss with ENT Hyponatremia - possibly from lung cancer - sodium dropped from 124 to 123. Serum low, urine sodium on lower side consistent with possible dehydration - will resume diet, stop fluids and recheck BMP - nephrology consult Pancytopenia - possibly from chemo - Hb 12.8 - had elevated TSH, normal free T4. Recheck tomorrow - check B12/folate - platelets and WBC low Lactic acidosis - resolved - d/c antibiotics.
[2020-07-02] MEDS ORDERED: Iopamidol 370 76% 100 ML VIAL ONE (13:14)
--- NOTE | 2020-07-02 15:25 | RAD ---
EXAM: CHEST ONE VIEW PORTABLE: 07/02/20 HISTORY: History of lung cancer, presyncope. COMPARISON: Chest CT plate colorer film, 04/26/20. FINDINGS: Somewhat poorly circumscribed oblong parenchymal density in the right upper mid lung zone overall sta ble from the CT plate colorer film. Multiple surgical clips overlie the left hilar and suprahilar region. Min imal focal area of increased density over the costochondral junction region of the anterior first rib . Minimal stable left sided pleural thickening. Less than optimal inspiration. IMPRESSION: Overall stable appearing chest as above. No confluent pneumonia, overt edema, or significant pleural effusion. POS: OFF
--- NOTE | 2020-07-02 16:53 | CON ---
DATE OF CONSULTATION: 07/02/2020 CONSULTING PHYSICIAN: Hospitalist Services. IMPRESSION: 1. Orthostatic hypotension. 2. Right carotid stenosis, which I do not feel will require surgery given his age and overall health. 3. Coronary artery disease. 4. Chronic obstructive pulmonary disease. 5. Lung cancer with mets to the liver. PLAN: The patient can follow up with Dr. Mcpherson for management of his orthostatic hypotension. HISTORY OF PRESENT ILLNESS: Mr. Irvin is an 85-year-old gentleman, who is a patient Dr. Mcpherson he has had a known history of peripheral neuropathy and secondary orthostatic hypotension. He was previously taking midodrine. He has ran out of that prescription. He was trying to get up from the toilet and was too weak to do so. He called the EMS and he was loaded on to the stretcher. As by his recollection, the blood pressure was quite low since admission. His orthostatic pressure changes are 30 mmHg systolic and 10 diastolic. He had a carotid ultrasound which showed a right carotid stenosis. His echocardiogram showed 55% to 60% ejection fraction. He had an MRI of the brain done, which showed cerebral atrophy, but no acute ischemic changes. He is back to his baseline now. PAST MEDICAL HISTORY: As listed above. ALLERGIES: CELEBREX, MORPHINE, ISOSORBIDE, NITROFURANTOIN. SOCIAL HISTORY: No tobacco or alcohol. FAMILY HISTORY: Noncontributory. MEDICATIONS: List was reviewed. REVIEW OF SYSTEMS: Ten-system review of systems is otherwise negative. PHYSICAL EXAMINATION: GENERAL: He is a well-nourished elderly man, lying in bed, in no distress. VITAL SIGNS: Vital signs were as noted. HEENT: Pupils equal. Conjunctivae clear. Oropharynx clear. NECK: Supple. No lymphadenopathy. EXTREMITIES: No cyanosis or edema. ABDOMEN: Soft and nontender. SKIN: Clear. NEUROLOGIC: He is alert and appropriate. He follows commands appropriately. Speech is fluent and clear. Cranial nerves were intact. Motor exam showed some mild distal weakness in the hands. There was severe weakness in both lower extremities involving both plantar flexion and ankle flexion with essentially no obtainable movement. Sensation was diminished in both feet. Reflexes were absent. Plantar responses were mute. Gait was not tested. SUMMARY: This is an elderly man with orthostatic hypotension. This would account for his feelings of weakness and inability to rise from the toilet. I do not think he is a very good candidate for carotid surgery. Job ID: [id number]
[2020-07-02] MEDS ORDERED: Tolvaptan 15 MG TAB PO SCH (17:00)
--- NOTE | 2020-07-02 18:04 | CON ---
DATE OF CONSULTATION: 07/02/2020 CONSULTING PHYSICIAN: Ling Santillan MD REASON FOR CONSULTATION: Hyponatremia. REASON FOR ADMISSION: Stroke-like symptom. HISTORY OF PRESENT ILLNESS: This is an 85-year-old male with history of COPD, hypertension, stage IV lung cancer with metastases to liver, who came to the hospital with above complaints. The patient was seen at the [facility] twice before admission, one with chest pain and one with dizziness and weakness and the patient was transferred over here. He is having evaluation for carotid stenosis and other . Neurology also is evaluating him. The patient is feeling better. He is complaining of leg weakness on and off. No nausea or vomiting. No chest pain or palpitation. No diarrhea. PAST MEDICAL HISTORY: Positive for lung cancer, hypertension, GERD, BPH, peripheral neuropathy, peripheral vascular disease, and COPD. PAST SURGICAL HISTORY: Back surgery, cholecystectomy, left upper lobe lobectomy, left cataract surgery, and orchiectomy. HOME MEDICATIONS: Reviewed. ALLERGIES: CELECOXIB, ISOSORBIDE, MORPHINE, AND NITROFURANTOIN. SOCIAL HISTORY: No smoking, alcohol, or illicit drug abuse. FAMILY HISTORY: No history of kidney disease. REVIEW OF SYSTEMS: CONSTITUTIONAL: Negative for weight loss or gain, ability to conduct usual activities. SKIN: Negative for rash, itching. EYES: Negative for double vision, pain. ENT/MOUTH: Negative for nose bleeding, neck stiffness, pain, tenderness. CARDIOVASCULAR: Negative for palpitations, dyspnea on exertion, orthopnea. RESPIRATORY: Negative for shortness of breath, wheezing, cough, hemoptysis, fever or night sweats. GASTROINTESTINAL: Negative for poor appetite, abdominal pain, heartburn, nausea, vomiting, constipation, or diarrhea. GENITOURINARY: Negative for urgency, frequency, dysuria, nocturia. MUSCULOSKELETAL: Negative for pain, swelling. NEUROLOGIC/PSYCHIATRIC: Negative for anxiety, depression. ALLERGY/IMMUNOLOGIC: Negative for skin rash, bleeding tendency. PHYSICAL EXAMINATION: GENERAL: This is a well-built male, in no apparent distress. VITAL SIGNS: Temperature 97.5, pulse 52, respiratory rate 18, and blood pressure 142/63. HEENT: Atraumatic, normocephalic. Oral mucosa moist. NECK: Supple. CV: S1 and S2. Rate and rhythm regular. RESPIRATORY: Clear. GASTROINTESTINAL: Abdomen is soft. MUSCULOSKELETAL: No tenderness. No edema. DERMATOLOGIC: No skin rash. NEUROLOGIC: Alert and awake. PSYCHIATRIC: Mood and affect normal. LABORATORY DATA: Hemoglobin is 12.8. Potassium is 3.8, sodium 123, it was 124 on admission. Last sodium in the chart on 06/18/2020 was 134. Creatinine is 0.7. ASSESSMENT AND PLAN: 1. Hyponatremia. Urine studies with a urine sodium of 21 and urine osmolality 318. Serum osmolality was 259. Urine studies suggest syndrome of inappropriate antidiuretic hormone secretion and he is most likely from lung cancer with metastases. Plan is to have tolvaptan and limit fluid intake to 1200 mL per day and monitor sodium closely. 2. Hypochloremia. 3. History of lung cancer. 4. 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 5. History of hypertension, stable. Plan to start on tolvaptan. Monitor sodium closely. Limit fluid intake. We will follow. Job ID: [id number]
[2020-07-02 19:29] LABS: Anion Gap 12 mmol/L (10-20); BUN (Urea Nitrogen) 7 mg/dL (8.4-25.7); Calc. Creatinine Clearance 90 mL/min (70-130); Calcium 8.2 mg/dL (7.8-10.44); Carbon Dioxide 23 mmol/L (23-31); Chloride 94 mmol/L (98-107); Estimated GFR-MDRD Greater than 90; Glucose 106 mg/dL (83-110); Sodium 125 mmol/L (136-145)
--- NOTE | 2020-07-02 22:23 | CON ---
DATE OF CONSULTATION: REASON FOR CONSULT: Lung cancer. HISTORY OF PRESENT ILLNESS: Mr. Irvin is a pleasant 85-year-old gentleman, who has metastatic squamous cell carcinoma of the lung. He is currently receiving immunotherapy with Keytruda. He had a PET scan in April of this year, which showed excellent response. He was recently switched to every 6-week treatment and received his last dose on June 19. After this cycle, he was admitted to [facility] in [place] for weakness. He was treated, sent home, and returned again on Wednesday. He had a CT angio of the chest performed on July 01. As he presented to the ER once again with chest pain, the CT angio was compared to the last CT of the chest in December of 2019 and noted decrease in size of the right lower lobe mass. He was sent home and had blurred vision and dizziness late Wednesday evening and presented to the ER once again with stroke-like symptoms and was transferred to this facility. He underwent a CT scan of his brain, carotids, and [place]. He has critical stenosis of his right internal carotid artery. He actually denies any complaints at this time. He has no dysphagia, blurred vision, or speech problems. No weakness in his extremities. No pain at this time. PAST MEDICAL HISTORY: 1. 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 2. Coronary artery disease. 3. Hypertension. 4. Hyperlipidemia. 5. Arthritis. 6. Peripheral neuropathy. 7. COPD. PAST SURGICAL HISTORY: 1. Left upper lobe lobectomy in 2014. 2. Coronary artery stents. 3. Back surgery. 4. Orchiectomy. 5. Cholecystectomy. ALLERGIES: TO MORPHINE. HOME MEDICATIONS: 1. Aspirin. 2. Buspirone. 3. Plavix. 4. Ezetimibe. 5. Vascepa. 6. Lisinopril. 7. Nitroglycerin. 8. Lyrica. 9. Ranolazine. 10. Flomax. 11. Inhaler. FAMILY HISTORY: His father had lung cancer at the age of 82. Mother had breast cancer. SOCIAL HISTORY: , has 2 children. History of 64-mppm-nvya smoking. No alcohol or illicit drug use. REVIEW OF SYSTEMS: Positive for fatigue and weakness. Otherwise, negative. PHYSICAL EXAMINATION: VITAL SIGNS: Temperature is 97.4, pulse is 55, respiratory rate 18, BP is 156/ 85, and 95% on room air. GENERAL: A well-developed, well-nourished male, no acute distress. HEENT: Normocephalic, atraumatic. Pupils are equal and reactive to light. NECK: Supple. CV: Regular rate and rhythm. LUNGS: Clear. ABDOMEN: Obese. Bowel sounds are positive. EXTREMITIES: No clubbing or cyanosis. SKIN: No rash. NEUROLOGICAL: He has decreased sensation in his lower extremities with bilateral footdrop, which is chronic. PERTINENT LABORATORY DATA AND X-RAYS: WBCs are 4.7, hemoglobin 12.8, hematocrit 37.2, platelet count 116,000. He has 58% neutrophils, 30% lymphocytes. PT is 13.7, INR is 1, and PTT is 37. Sodium 123, potassium 3.8, chloride 95, CO2 is 18, BUN is 7, and creatinine 0.76. Lactic acid 2.5, calcium 8.3, bilirubin 0.6, AST is 25 , ALT is 18, and alkaline phosphatase is 59. Serum total protein is 5.7, albumin 3.2 , and globulin 2.5. Radiology, per HPI. ASSESSMENT: 1. Metastatic lung cancer, on immunotherapy with Keytruda. 2. Syncope with weakness. 3. Carotid stenosis. DISCUSSION: The patient is currently being worked up for carotid stenosis and possible CVA. He has been doing well with Keytruda with just occasional weakness and fatigue after treatment. His recent PET scan in April showed significant response in both the size of the lung and liver masses. There was some question of new area of growth on recent scan, however, it was compared to scan in December. The plan will be to treat his current issues and follow up in the clinic. The patient is 100% PD-L1 positive on his immunohistochemical stains. He would likely continue Keytruda until further evidence of disease on next scan. The case has been discussed with Dr. Wiggins. Thank you for the consult. Job ID: [id number] [facility]
--- NOTE | 2020-07-03 00:28 | CON ---
DATE OF CONSULTATION: HISTORY OF PRESENT ILLNESS: This is an 85-year-old gentleman, who was referred by Dr. Mcpherson last year for severe peripheral vascular disease involving his right lower extremity that could not be treated with percutaneous intervention. At that time, he underwent a workup including CT angiography and then repeat angiography, ultimately having a saphenous vein bypass from the right femoral artery to the infrageniculate popliteal artery in December of 2018. He has done well since that time. He had had a previous lobectomy for lung cancer and was noted to have recurrence and perhaps his hilum and his liver and was seen by Dr. Wiggins where therapy was initiated with a rather dramatic improvement in the size of his liver lesion. He was at home yesterday and went into the bathroom, where he did not return and his son went to check on him. Patient evidently had slurred speech and the son said he was acting like he was drunk. It is not clear that all four extremities were moving, but he did admit to some tremors in his arms. He said the patient was slumped over and was eventually moved out of the bathroom by EMS and taken to the hospital in [place]. At that time, the patient continued to act like he was drunk with slurred speech. However, this eventually resolved and he was transferred to [facility]. He was on dual antiplatelet agents at the time of this event. A brain MRI was done here and showed no evidence of cerebral infarction. A carotid ultrasound was done suggesting moderate right common carotid artery disease and a CT angiogram demonstrated about an 80% to 90% common carotid artery lesion about 2 cm before the carotid bulb and then about a 90% stenosis of the right internal carotid artery at its origin. Additionally on admission, the patient was noted to have a sodium of 123, which was considerably different than when he was here in December of 2018. 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 Dr. Wiggins was involved in discussion with the hospitalist and felt that the patient should have a carotid intervention if it was indicated as his survival was at least 1 to 2 years given the current situation with his lung cancer. PAST MEDICAL HISTORY: Otherwise includes peripheral vascular disease, for which he has had multiple stents placed in his left leg and the previously noted fem pop bypass on the right. He has neuropathy as well as resultant bilateral foot drops necessitating use of a walker at all times due to balance issues. He has COPD and prostatic hypertrophy. PAST SURGICAL HISTORY: Includes lumbar decompression, cardiac catheterization in 2013, cataract extraction in 2016, cholecystectomy, left lung lobectomy, orchectomy, and implantable panel monitor. SOCIAL HISTORY: The patient has not smoked in more than 10 years. He does not exercise regularly and he is not on any regular alcohol use. ALLERGIES: ISOSORBIDE, MORPHINE, MACRODANTIN, AND TETANUS. PHYSICAL EXAMINATION: GENERAL: He is an alert, cooperative gentleman, in no distress. NECK EXAMINATION: I do not appreciate any carotid bruits. LUNGS: Clear to auscultation. CARDIAC: Regular rate and rhythm. No murmurs. ABDOMEN: Normal, soft, nontender. EXTREMITIES: He has a palpable right dorsalis pedis. I do not appreciate any pedal pulses on the left and he has no peripheral edema. At this time, the patient could have an extended right carotid endarterectomy including common and internal carotid endarterectomy. Given that his sodium is 123, we will allow Nephrology the needed time to improve upon this and I have discussed this situation with the patient as well as his son by phone and both seem agreeable to carotid intervention understanding the risks, complications, benefits, and expectations. Job ID: [id number]
[2020-07-03 05:15] LABS: Hemoglobin 14.1 g/dL (14.0-18.0); Mean Corpuscular HGB CONC 34.1 g/dL (32.0-36.0); Mean Corpuscular Hemoglobin 32.2 pg (27.0-31.0); Mean Corpuscular Volume 94.5 fL (78.0-98.0); Mean Platelet Volume 6.7 fL (7.4-10.4); Platelet Count 119 thou/uL (130-400); RBC Distribution Width 13.2 % (11.5-14.5); Red Blood Cell (RBC) Count 4.36 mill/uL (4.70-6.10); White Blood Cell (WBC) Count 4.2 thou/uL (4.8-10.8)
[2020-07-03 05:18] LABS: Anion Gap 14 mmol/L (10-20); BUN (Urea Nitrogen) 7 mg/dL (8.4-25.7); Calc. Creatinine Clearance 92 mL/min (70-130); Calcium 8.9 mg/dL (7.8-10.44); Carbon Dioxide 22 mmol/L (23-31); Chloride 99 mmol/L (98-107); Estimated GFR-MDRD Greater than 90; Glucose 84 mg/dL (83-110); Potassium 3.9 mmol/L (3.5-5.1); Sodium 131 mmol/L (136-145)
[2020-07-03 05:43] LABS: Thyroid Stimulating Hormone 6.4594 uIU/mL (0.35-4.94)
[2020-07-03] MEDS: Acetaminophen 325 MG TAB PO PRN (08:58)
[2020-07-03] MEDS: Pantoprazole 40 MG VIAL IVP SCH (08:59)
[2020-07-03] MEDS: Clopidogrel Bisulfate 75 MG TAB PO SCH (08:59)
[2020-07-03] MEDS: Ezetimibe 10 MG TAB PO SCH (08:59)
[2020-07-03] MEDS: Aspirin 81 mg Enteric Coated Tablet PO SCH (08:59)
[2020-07-03] MEDS: Cyanocobalamin (Vitamin B-12) 1,000 MCG TAB PO SCH (09:04)
--- NOTE | 2020-07-03 09:39 | CT ---
CT ANGIOGRAM NECK WITH CONTRAST CT ANGIOGRAM BRAIN WITH AND WITHOUT CONTRAST: DATE: 07/02/2020 HISTORY: 85-year-old male with "presyncope, and "and acute stroke symptoms: Generalized weakness and dysarthri a. Abnormal carotid Doppler ultrasound. Dr. Ward reported the right internal carotid critical stenosis by telephone to nurse Britta Ho at 11:37 AM prescribed today. She was instructed to notify the ordering physician as soon as possible. TECHNIQUE: Noncontrast brain CT performed first. After IV contrast injection, arterial bolus chasing technique scan performed from AP window to vertex of head. Coronal and sagittal 3-D MIP reconstructions. FINDINGS: Diffuse involutional changes and mild chronic ischemic white matter changes of brain. No acute intrac ranial findings. There is an approximately 3 x 2 x 2.5 cm noncalcified pulmonary mass at the apical segment of the rig ht upper lobe, broadly abutting the anterior pleural surface and the undersurface of the anterior portion of the right first rib it contains tiny central cavitation, and has very irregular margins. T his corresponds to the known malignant focus demonstrated on prior PET scan and prior chest CT. Located more inferiorly, and posteriorly, there is another pulmonary lesion in the right upper lobe w ith very irregular margins. This also corresponds to another known malignant focus demonstrated on prior PET scan and prior chest CT. There is a new finding of soft tissue density material throughout the left hilum consistent with lee gnant hilar lymphadenopathy. There are calcified and noncalcified atherosclerotic plaque in multiple arteries, including throughou t the aortic arch and especially at the bilateral carotid bulbs. Brachiocephalic: No high-grade stenosis. Right subclavian: No high-grade stenosis. Left subclavian: Mid and distal portions obscured by streak artifact from dense contrast media in adj acent veins. No high-grade stenosis proximally. Right vertebral: No high-grade stenosis. Left vertebral: Dominant. No high-grade stenosis. Basilar: No high-grade stenosis. Bilateral shipping checker: No high-grade short segment acquired stenosis of P1 and P2 segments. Bilateral posterior communicating arteries are patent. Bilateral carotid siphons: Atherosclerotic irregularity with multifocal mild stenoses. Bilateral MCAs: M1 segments demonstrate no severe stenosis or occlusion. Bilateral ACAs: Diminutive but patent right A1 segment. No significant stenosis of left A1 segment or bilateral A2 segments. Right common carotid: Located approximately 8 cm superior to its origin, and approximately 3.5 cm cau cem to the carotid bifurcation, there is a large focal mixed noncalcified and calcified atheromatous plaque which causes approximately 75-80% stenosis.. Right internal carotid: Mixed heavily calcified and noncalcified plaque at origin at carotid bulb, ex tending approximately 1 cm distal to the origin, causing approximately 90-99% stenosis. Left common carotid: Proximal portion obscured by streak artifact from contrast bolus in adjacent vei n. No high-grade stenosis of mid and distal portions. Left internal carotid: Mild to moderate calcified plaque at proximal vessel including origin causing mild stenosis. IMPRESSION: 1) critical stenosis at proximal right internal carotid artery, including origin, due to heavy athero matous plaque. 2.) Severe stenosis at the mid-distal right common carotid artery. 3) new finding of malignant activity at the left hilum. 4) 2 lesions in the right upper lobe corresponding to known foci of malignancy. Transcribed Date/Time: 07/03/2020 9:38 AM
[2020-07-03] MEDS ORDERED: Meclizine HCl 12.5 MG TAB PO PRN (11:41)
[2020-07-03] MEDS ORDERED: Ipratropium Bromide 2.5 ml Neb NEB PRN (11:48)
--- NOTE | 2020-07-03 11:58 | PDOC.HOSPP ---
- Subjective Encounter Date: 07/03/20 Encounter Time: 11:57 Subjective: The patient has no new complaints. No ear pain. He complains of dizziness while sitting in the chair. Orthostatics showed BP 135 supine and 145 sitting. He was not able to tolerate standing for too long. he denies chest pain. While standing patient reported that he felt like falling forward and had dizziness falling forward - Objective Vital Signs & Weight: Vital Signs (12 hours) Temp Pulse Pulse Pulse Pulse Resp BP 07/03/20 11:07 98.0 F 68 20 07/03/20 09:34 60 61 61 150/75 H 07/03/20 07:15 98.4 F 65 16 07/03/20 04:00 97.5 F L 68 18 07/03/20 00:00 98.3 F 69 18 BP BP BP Pulse Ox 07/03/20 11:07 127/69 99 07/03/20 09:34 124/70 150/64 H 07/03/20 07:15 111/55 L 96 07/03/20 04:00 146/62 H 96 07/03/20 00:00 155/73 H 96 Weight Weight 206 lb I&O: 07/02/20 07/03/20 07/04/20 06:59 06:59 06:59 Intake Total 939 Output Total 200 5000 100 Balance -200 -4061 -100 Result Diagrams: 07/03/20 04:35 07/03/20 04:35 Hospitalist ROS - Review of Systems Constitutional: denies: fever, chills - Medication Medications: Active Medications Generic Name Dose Route Start Last Admin Trade Name Gianni PRN Reason Stop Dose Admin Acetaminophen 650 mg 07/02/20 03:21 07/03/20 08:58 Tylenol PO 650 mg Q4H PRN Administration Headache/Fever/Mild Pain (1-3) Aspirin 81 mg 07/02/20 09:00 07/03/20 08:59 Ecotrin PO 81 mg DAILY JANNA Administration Clopidogrel Bisulfate 75 mg 07/02/20 09:00 07/03/20 08:59 Plavix PO 75 mg DAILY JANNA Administration Cyanocobalamin 1,000 mcg 07/03/20 09:00 07/03/20 09:04 Vitamin B-12 PO 1,000 mcg DAILY JANNA Administration Ezetimibe 10 mg 07/02/20 09:00 07/03/20 08:59 Zetia PO 10 mg DAILY JANNA Administration Pantoprazole Sodium 40 mg 07/02/20 09:00 07/03/20 08:59 Protonix IVP 40 mg DAILY JANNA Administration Sodium Chloride 10 ml 07/02/20 03:21 07/03/20 08:59 Flush - Normal Saline IVF 10 ml PRN PRN Administration Saline Flush - Exam General Appearance: NAD, awake alert Eye: PERRL, anicteric sclera ENT - other findings: no significant wax, no erythema. Had dizziness with insertion on left ear Neck: supple, symmetric, no JVD Heart: RRR, no murmur, no gallops, no rubs Respiratory: CTAB, no wheezes, no rales, no ronchi Gastrointestinal: soft, non-tender, non-distended, normal bowel sounds Extremities: no cyanosis, no clubbing, no edema Skin: normal turgor, no lesions, no rashes Neurological: cranial nerve grossly intact, normal sensation to touch, no focal deficits, no new deficit Neurological - other findings: absent patellar reflexes lower extremities due to neuropathy Musculoskeletal: normal tone, normal strength, no muscle wasting Psychiatric: normal affect, normal behavior, A&O x 3 Hosp A/P - Plan CTA chest: reviewed, CTA head/neck: critical stenosis proximal right ICA, severe stenosis at mid to distal right common carotid. New malignant activity at left hilum. 2 lesions in RUL corresponding to malignancy . New malignant activity left hilum Carotid doppler: extensive plaque right CCA MRI brain: severe left mastoid effusion ECHO: EF 55-60%, RVSP elevated This is an 85 year old male patient who presented with weakness and slurred speech, found to have right ICA stenosis #TIA - possibly from severe right ICA stenosis #Dizziness - possibly orthostatic hypotension versus from left mastoid effusion -had slurred speech and weakness. MRI brain negative for stroke but does have critical stenosis of right ICA on CTA neck. -Dr Villeda was consulted, plan for carotid endarterectomy when sodium has improved - will hold midodrine given severe stenosis of ICA. Will administer meclizine as needed for dizziness. Start zosyn for mastoid effusion #Severe left mastoid effusion - has dizziness when inserting speculum into the left ear, discussed with ENT, will resume antibiotics. Will start zosyn - unlikely BPPV given no dizziness while laying down and no nystagmus evident Hyponatremia - possibly from lung cancer/SIADH - sodium improved to 131. Tolvaptan was given 07/02. 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 Has new malignant activity left hilum on CTA - per oncology, CT scan at [facility] showed improvement in liver lesion from 6 cm to 12 mm and improvement in right lung lesion Vitamin B12 deficiency anemia - vitamin B12 level less than 200. Starting oral vitamin B12 supplementation - check intrinsic factor antibody in am - TSH elevated, but free T4 normal #Leukopenia #Thrombocytopenia - stable , likely from cancer. Continue to monitor Lactic acidosis - resolved
[2020-07-03] MEDS ORDERED: Mometasone 100 MCG/Formoterol 5 MCG 120 PUFF INHALER INH SCH ×2 (12:15→18:30)
--- NOTE | 2020-07-03 12:55 | PRG ---
DATE OF SERVICE: 07/03/2020 SUBJECTIVE: Patient was seen and examined at bedside and overnight events noted. Patient denies any shortness of breath or chest pain or palpitation. No history of nausea or vomiting or diarrhea or fever or chills or cramps. OBJECTIVE: GENERAL: This is a well-built male, in no apparent distress. VITAL SIGNS: Temperature 98.0. Heart rate 68. Respiratory rate 20. Blood pressure 127/69. HEENT: Atraumatic, normocephalic. Oral mucosa is moist NECK: Supple. CARDIOVASCULAR: S1, S2 heard. Rate and rhythm regular. RESPIRATORY: Clear to auscultation. GASTROINTESTINAL: Abdomen is soft. MUSCULOSKELETAL: No tenderness. No edema. DERMATOLOGIC: No skin rash. NEUROLOGIC: Alert and awake and oriented X3. No focal neurologic deficits. Moving all the extremities. PSYCHIATRIC: Mood and affect normal. LABORATORY DATA: Sodium is 131 from 123 yesterday, potassium 3.9, BUN is 7, creatinine 0.7. ASSESSMENT AND PLAN: 1. Hyponatremia, better with tolvaptan. Limit fluid intake. 2. 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 3. History of lung cancer. 4. History of hypertension. Limit fluid intake. Continue to monitor sodium. Job ID: [id number]
[2020-07-03] MEDS: Piperacillin/Tazobactam 3.375 GM in Sodium Chloride 0.9% 100 ML IVPB SCH ×2 (12:58→18:10)
[2020-07-03] MEDS: Mometasone 100 MCG/Formoterol 5 MCG 120 PUFF INHALER INH SCH (18:42)
[2020-07-04] MEDS: Piperacillin/Tazobactam 3.375 GM in Sodium Chloride 0.9% 100 ML IVPB SCH ×5 (01:01→23:29)
[2020-07-04 05:06] LABS: Hemoglobin 14.6 g/dL (14.0-18.0); Mean Corpuscular HGB CONC 34.8 g/dL (32.0-36.0); Mean Corpuscular Hemoglobin 33.2 pg (27.0-31.0); Mean Corpuscular Volume 95.6 fL (78.0-98.0); Mean Platelet Volume 6.4 fL (7.4-10.4); Platelet Count 116 thou/uL (130-400); RBC Distribution Width 13.4 % (11.5-14.5); Red Blood Cell (RBC) Count 4.38 mill/uL (4.70-6.10); White Blood Cell (WBC) Count 4.6 thou/uL (4.8-10.8)
[2020-07-04 05:15] LABS: Anion Gap 16 mmol/L (10-20); BUN (Urea Nitrogen) 7 mg/dL (8.4-25.7); Calc. Creatinine Clearance 81 mL/min (70-130); Carbon Dioxide 22 mmol/L (23-31); Chloride 101 mmol/L (98-107); Estimated GFR-MDRD 83; Glucose 84 mg/dL (83-110); Potassium 3.6 mmol/L (3.5-5.1); Sodium 135 mmol/L (136-145)
[2020-07-04] MEDS: Mometasone 100 MCG/Formoterol 5 MCG 120 PUFF INHALER INH SCH ×2 (06:47→18:45)
[2020-07-04] MEDS: Aspirin 81 mg Enteric Coated Tablet PO SCH (09:56)
[2020-07-04] MEDS: Cyanocobalamin (Vitamin B-12) 1,000 MCG TAB PO SCH (09:56)
[2020-07-04] MEDS: Pantoprazole 40 MG VIAL IVP SCH (09:56)
[2020-07-04] MEDS: Ezetimibe 10 MG TAB PO SCH (09:57)
[2020-07-04] MEDS ORDERED: Protamine Sulfate 50 MG/5 ML VIAL ONE (10:22)
[2020-07-04] MEDS ORDERED: Heparin 5,000 UNITS/ML VIAL ONE (10:22)
--- NOTE | 2020-07-04 10:46 | PDOC.HOSPP ---
- Subjective Encounter Date: 07/04/20 Encounter Time: 10:00 Subjective: The patient still complains of dizziness everytime he sits up and stands. Orthostatics laying to sitting was 117 to 109. Unable to do standing - Objective Vital Signs & Weight: Vital Signs (12 hours) Temp Pulse Resp BP BP BP Pulse Ox 07/04/20 09:55 97.6 F 76 20 115/60 109/59 L 117/62 97 07/04/20 06:47 61 16 98 07/04/20 05:58 97.8 F 16 136/71 94 L Weight Weight 206 lb I&O: 07/03/20 07/04/20 07/05/20 06:59 06:59 06:59 Intake Total 939 1360 Output Total 3588 3078 Balance -4061 -615 Result Diagrams: 07/04/20 04:43 07/04/20 04:43 Hospitalist ROS - Medication Medications: Active Medications Generic Name Dose Route Start Last Admin Trade Name Freq PRN Reason Stop Dose Admin Acetaminophen 650 mg 07/02/20 03:21 07/03/20 08:58 Tylenol PO 650 mg Q4H PRN Administration Headache/Fever/Mild Pain (1-3) Aspirin 81 mg 07/02/20 09:00 07/04/20 09:56 Ecotrin PO 81 mg DAILY JANNA Administration Cyanocobalamin 1,000 mcg 07/03/20 09:00 07/04/20 09:56 Vitamin B-12 PO 1,000 mcg DAILY JANNA Administration Ezetimibe 10 mg 07/02/20 09:00 07/04/20 09:57 Zetia PO 10 mg DAILY JANNA Administration Piperacillin Sod/Tazobactam 100 mls @ 200 mls/hr 07/03/20 12:00 07/04/20 06: 01 Sod 3.375 gm/ Sodium Chloride IVPB 100 mls Q6HR JANNA Administration Mometasone Furoate/Formoterol Fumar 2 puff 07/03/20 18:30 07/04/20 06:47 Dulera 100 Mcg/5 Mcg Inhaler INH 2 puff BID-RT JANNA Administration Pantoprazole Sodium 40 mg 07/02/20 09:00 07/04/20 09:56 Protonix IVP 40 mg DAILY JANNA Administration - Exam General Appearance: NAD, awake alert Eye: PERRL, anicteric sclera ENT: normocephalic atraumatic, no oropharyngeal lesions Neck: no JVD Heart: RRR, no murmur, no gallops, no rubs Respiratory: CTAB, no wheezes, no rales, no ronchi Gastrointestinal: soft, non-tender, non-distended Extremities: no cyanosis, no edema Neurological - other findings: neuropathy in lower feet, diminished sensation in feet Musculoskeletal - other findings: 5/5 strength when lifting legs and arms. Unable to plantar flex legs Psychiatric: normal affect, A&O x 3 Hosp A/P - Plan CTA chest: reviewed, CTA head/neck: critical stenosis proximal right ICA, severe stenosis at mid to distal right common carotid. New malignant activity at left hilum. 2 lesions in RUL corresponding to malignancy . New malignant activity left hilum Carotid doppler: extensive plaque right CCA MRI brain: severe left mastoid effusion ECHO: EF 55-60%, RVSP elevated This is an 85 year old male patient who presented with weakness and slurred speech, found to have right ICA stenosis #TIA - possibly from severe right ICA stenosis #Dizziness - possibly orthostatic hypotension versus from left mastoid effusion vs ICA stenosis -had slurred speech and weakness. MRI brain negative for stroke but does have critical stenosis of right ICA on CTA neck. - plan for carotid endarterectomy today - orthostatics negative today, unable to standing orthostatics - continue meclizine prn for dizziness. Continue antibiotics for mastoid effusion - continue with PT #Severe left mastoid effusion - continue zosyn. Per ENT, will treat with antibiotics for few days, if no improvement consider myringotomy at some point - unlikely BPPV given no dizziness while laying down and no nystagmus evident Hyponatremia - possibly from lung cancer/SIADH - resolved, sodium up to 135. 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 Has new malignant activity left hilum on CTA - per oncology, CT scan at [facility] showed improvement in liver lesion from 6 cm to 12 mm and improvement in right lung lesion Vitamin B12 deficiency anemia - vitamin B12 level less than 200. Starting oral vitamin B12 supplementation - check intrinsic factor antibody in am #Leukopenia #Thrombocytopenia - stable , likely from cancer. Continue to monitor Lactic acidosis - resolved
[2020-07-04] MEDS ORDERED: Dexamethasone 20 MG/5 ML VIAL ONE (10:47)
[2020-07-04] MEDS ORDERED: EPHEDRINE 25 MG/5 ML SYRINGE ONE (10:47)
[2020-07-04] MEDS ORDERED: PROPOFOL 200 MG/20 ML VIAL ONE (10:47)
[2020-07-04] MEDS ORDERED: Lidocaine 1% PF 5 ML VIAL ONE (10:47)
[2020-07-04] MEDS ORDERED: Glycopyrrolate 0.2 MG/ML 5 ML SYRINGE ONE (10:47)
[2020-07-04] MEDS ORDERED: Rocuronium Bromide 10 MG/ML (10ML VIAL) ONE (10:47)
[2020-07-04] MEDS ORDERED: PHENYLEPHRINE-NS 100 MCG/ML 10 ML SYRINGE ONE (10:47)
[2020-07-04] MEDS ORDERED: Fentanyl 100 MCG/2 ML VIAL ONE (11:29)
[2020-07-04] MEDS ORDERED: niCARdipine 25 MG/10 ML VIAL ONE (11:29)
[2020-07-04] MEDS ORDERED: Phenylephrine 10 MG/ML VIAL ONE (11:29)
[2020-07-04] MEDS ORDERED: Nitroglycerin 50 MG/250 ML BOT 0 ML ONE (11:29)
[2020-07-04] MEDS ORDERED: Piperacillin/Tazobactam 3.375 GM VIAL ONE (12:26)
[2020-07-04] MEDS ORDERED: Sodium Chloride 0.9% 100 ML ONE (12:26)
[2020-07-04] MEDS ORDERED: Promethazine HCl 25 MG/ML VIAL SLOW IVP PRN (14:04)
[2020-07-04] MEDS ORDERED: Ondansetron HCl/PF 4 MG/2 ML Vial IVP PRN ×2 (14:04→15:01)
[2020-07-04] MEDS ORDERED: Norepinephrine 8 MG/0.9% NS 250 ML IVPB PRN (15:01)
[2020-07-04] MEDS ORDERED: traMADol HCl 50 MG TAB PO PRN (15:01)
[2020-07-04] MEDS ORDERED: Ondansetron PF 4 MG/2 ML Vial IVP PRN (15:01)
[2020-07-04] MEDS ORDERED: Sodium Chloride 0.9% 1,000 ML IV SCH (15:01)
[2020-07-04] MEDS ORDERED: Fentanyl 100 MCG/2 ML VIAL SLOW IVP PRN (15:01)
--- NOTE | 2020-07-04 15:28 | PRG ---
DATE OF SERVICE: 07/04/2020 SUBJECTIVE: Patient was seen and examined at bedside and overnight events noted. Patient denies any shortness of breath or chest pain or palpitation. No history of nausea or vomiting or diarrhea or fever or chills or cramps. OBJECTIVE: General: This is well-built male, in no apparent distress. Vital Signs: Temperature 97.8. Heart Rate 61. Respiratory rate 16. Blood pressure . HEENT: Atraumatic, normocephalic. Oral mucosa is moist. Neck: Supple. Cardiovascular: S1, S2 heard. Rate and rhythm regular. Respiratory: Clear to auscultation. Gastrointestinal: Abdomen is soft. Musculoskeletal: No tenderness. No edema. Dermatologic: No skin rash. Neurologic: Alert and awake and oriented x3. No focal neurologic deficits. Moving all the extremities. Psychiatric: Mood and affect normal. LABORATORY DATA: Potassium is 3.6, sodium 135, BUN is 7, creatinine 0.87. ASSESSMENT AND PLAN: 1. Hyponatremia, responded well to tolvaptan. 2. Syndrome of inappropriate antidiuretic hormone secretion. 3. History of lung cancer. 4. Hypertension. Continue fluid restriction for now as tolerated. Monitor sodium. Job ID: [id number]
[2020-07-04] MEDS ORDERED: Tamsulosin HCl 0.4 MG CAP PO SCH (21:00)
[2020-07-05] MEDS: Piperacillin/Tazobactam 3.375 GM in Sodium Chloride 0.9% 100 ML IVPB SCH (05:05)
[2020-07-05 07:11] LABS: Sodium 136 mmol/L (136-145)
[2020-07-05] MEDS: Cyanocobalamin (Vitamin B-12) 1,000 MCG TAB PO SCH (09:56)
[2020-07-05] MEDS: Ezetimibe 10 MG TAB PO SCH (09:56)
[2020-07-05] MEDS: Aspirin 81 mg Enteric Coated Tablet PO SCH (09:56)
[2020-07-05] MEDS: Mometasone 100 MCG/Formoterol 5 MCG 120 PUFF INHALER INH SCH (09:57)
--- NOTE | 2020-07-05 12:58 | OP ---
DATE OF PROCEDURE: 07/04/2020 PREOPERATIVE DIAGNOSIS: Critical symptomatic right carotid stenosis. POSTOPERATIVE DIAGNOSIS: Critical symptomatic right carotid stenosis. PROCEDURE PERFORMED: Right carotid endarterectomy with bovine patch angioplasty. ANESTHESIA: General. ESTIMATED BLOOD LOSS: 200. DESCRIPTION OF PROCEDURE: After adequate anesthesia had been obtained, ultrasound was used to guide the proposed incision. The patient had a common carotid artery stenosis 4 cm proximal to the carotid bulb and then a critical internal carotid stenosis involving the bulb and distally. Incision was made, and after exposing the common carotid artery proximally, the external and internal carotid arteries were mobilized. Hypoglossal nerve was visualized and not touched. The patient was given 7500 units of heparin and with a good ACT level clamps were applied and arteriotomy performed. The patient's common carotid artery lesion with hemorrhage into a plaque with resultant severe stenosis. This was endarterectomized due to its friable nature prior to placing a shunt. After removing this portion of the plaque, the area was thoroughly irrigated and inspection proximally and distally to ensure no loose debris and a 10-Japanese shunt was then placed with excellent backbleeding. Following this, the remainder of the endarterectomy was carried out with satisfactory tapering distally. The area was thoroughly irrigated. A long bovine patch closure was then carried out with a running 6-0 Prolene suture. Prior to completing the suture line, the vessels were backflushed and forward flushed, and the area thoroughly irrigated. Flow was then restored up the external and internal carotid artery. 25 mg of protamine was given to partially reverse the heparin; however, probably due to aspirin and Plavix therapy, the patient continued to ooze through multiple needle holes and ultimately another 25 mg of protamine was given, at which time there was no further bleeding from the needle holes. There was a good pulse distally and the wound was then thoroughly irrigated and closed in layers and the patient is to be taken to the recovery room in guarded condition. Job ID: [id number]
--- NOTE | 2020-07-05 13:01 | PRG ---
DATE OF SERVICE: SUBJECTIVE: Patient was seen and examined at bedside and overnight events noted. Patient denies any shortness of breath or chest pain or palpitation. No history of nausea or vomiting or diarrhea or fever or chills or cramps. OBJECTIVE: General: This is a well-built male, in no apparent distress. Vital Signs: Temperature 97.6. Heart Rate 52. Respiratory rate 16. Blood pressure 129/59. HEENT: Atraumatic, normocephalic. Oral mucosa is moist. Neck: Supple. Cardiovascular: S1, S2 heard. Rate and rhythm regular. Respiratory: Clear to auscultation. Gastrointestinal: Abdomen is soft. Musculoskeletal: No tenderness. No edema. Dermatologic: No skin rash. Neurologic: Alert and awake and oriented x3. No focal neurologic deficits. Moving all the extremities. Psychiatric: Mood and affect normal. LABORATORY DATA: Sodium 133, potassium 3.6, creatinine 0.8. ASSESSMENT AND PLAN: 1. Hyponatremia. Sodium level is stable. 2. Syndrome of inappropriate antidiuretic hormone secretion. Limit fluid. 3. History of lung cancer. 4. History of hypertension. Sodium level is staying stable. We will continue fluid restriction as tolerated. Job ID: [id number]
[2020-07-05 16:03] VITALS: BP 120/59; TEMP 97.5
[2020-07-05] MEDS ORDERED: Amoxicillin/Potassium Clav 875 MG TAB PO SCH (21:00)
--- NOTE | 2020-07-06 16:01 | DIS ---
DATE OF ADMISSION: 07/03/2020 DATE OF DISCHARGE: 07/05/2020 DISCHARGE DIAGNOSES: 1. Dizziness, possibly secondary to transient ischemic attack versus severe carotid stenosis of the right ICA versus severe left mastoid effusion. 2. Hyponatremia, likely secondary to syndrome of inappropriate antidiuretic hormone. 3. Pancytopenia secondary to chemotherapy. 4. Vitamin B12 deficiency. CONSULTATIONS: 1. Lisbeth Humpherys, Oncology. 2. Sacha Rosenbaum MD, Neurology. 3. Elisabeth Damian MD, Nephrology. 4. Gerber Villeda MD, Cardiothoracic Surgery. PROCEDURES: Right carotid endarterectomy with bovine patch angioplasty on . BRIEF HISTORY OF PRESENT ILLNESS: This 85-year-old male with past medical history of CAD and lung cancer, who presented to the emergency room due to dizziness. The patient reported that he felt dizzy, like he was going to fell forward and he had bilateral upper extremity tremors. His son called EMS. His initial NIH score was 9. The CT head was negative for any acute process. CT C-spine was negative. His lactic acid was 3.4. His sodium was 124 and his TSH was 18. He was given fluid and transferred here for further workup. HOSPITAL COURSE: 1. Dizziness, possibly secondary to TIA with severe right IC stenosis versus orthostatic hypotension versus left mastoid effusion: The patient was initially placed on IV fluids for his hyponatremia; however, his sodium got worse with this. He had a CT scan of his head, which showed no stroke. MRI of his brain was negative for stroke. Carotid Doppler showed critical stenosis of his right ICA. CTA of his head and neck showed almost 99% stenosis of his right ICA. Vascular Surgery was consulted and the patient underwent a right carotid endarterectomy. After his endarterectomy, his dizziness resolved. He should follow up with Dr. Villeda in a week. He was seen by Physical Therapy who recommended rehab. However, the patient refused and therefore he was discharged instead with home health. He had also had a left mastoid effusion on his MRI brain. Upon examination of his ear he experienced severe dizziness with speculum insertion. Antibiotics were started after discussion with ENT. He had no dizziness laying flat which would suggest benign positional vertigo. He was discharged with augmentin for five additional days. 2. Hyponatremia: The patient presented to the emergency room with a sodium of 123. He was initially started on IV fluids with worsening of sodium. Nephrology was consulted and he received tolvaptan. He was started on a 1.2 L fluid restriction. On the day of discharge, patient's sodium normalized to 136. Continue 1.2 L fluid restriction on discharge. 3. Vitamin B12 deficiency anemia: The patient's vitamin B12 level was checked, it was 198. He was started on vitamin B12 supplements. Intrinsic factor was checked, which is still pending. Consider repeat levels as an outpatient. DISCHARGE PHYSICAL EXAMINATION: VITAL SIGNS: Temperature 97.5, heart rate 73, respiratory rate 17, O2 saturation 97% on room air, blood pressure 120/59. GENERAL: The patient is alert, awake, and oriented x3. CVS: Regular rate and rhythm with no murmurs, rubs, or gallops. NECK: The patient has a well-healed scar on his right neck. There is no discharge. ABDOMEN: Positive bowel sounds, soft, nontender, nondistended. LUNGS: Clear to auscultation bilaterally. EXTREMITIES: No edema. NEURO: Cranial nerves 2 through 12 are intact. He has 5/5 strength in his upper extremities. He has normal sensation in his upper extremities. He has absent reflexes in his patella. He has decreased plantar flexion in his lower extremities due to diabetic neuropathy. He has 4/5 strength in his lower extremities. PERTINENT LABORATORY DATA: CBC 07/04: White count 4.6, hemoglobin 14.6, hematocrit 41.9, platelet count 116. BMP 07/04: Unremarkable except for sodium 135. Sodium 07/05: 136. Vitamin B12: 198. Folate: 8.6. TSH: 6.45. Free T4: 1.01. Lipid panel: Triglycerides 187, cholesterol 173, LDL 104, HDL 32. UA, urine osmolarity, 07/02: 318. Urine sodium: 21. IMAGING: MRI brain 07/02: Shows diffuse cerebral involutional changes and mild chronic ischemic white matter changes. Severe left mastoid effusion. Epidermal inclusion cyst in left cheek. Carotid Doppler 07/02: Shows focal abnormal increased velocity in the distal right ICA with extensive plaque. CT angiography 07/02: Critical stenosis of the proximal right ICA including the origin due to heavy atheromatous plaque. Severe stenosis of the mid distal right common carotid artery. New finding of malignant activity of the left hilum. Two lesions of the right upper lobe corresponding to known foci of malignancy. CTA head 07/02: Diffuse involutional changes and mild chronic ischemic white matter changes of the brain. There is 3 x 2 x 2.5 cm noncalcified pulmonary mass in the apical segment of the right upper lobe with tiny central cavitation and very irregular margins. Chest x-ray 07/02: Negative. Echo 07/02: EF 55% to 60%. Mild to moderate TR. DISCHARGE CONDITION: Stable. ACTIVITY: As tolerated. DIET: A 1.2 L fluid restriction. DISCHARGE MEDICATIONS: 1. Augmentin 825 mg p.o. q.12 hours. 2. Atorvastatin 40 mg p.o. daily. 3. Vitamin B12 1000 mcg p.o. daily. DISCHARGE INSTRUCTIONS: The patient should follow up with his PCP in a week. Follow up vitamin B12 levels with your PCP. Consider seeing an ENT doctor if you have persistent dizziness after antibiotics. Follow up with Dr. Villeda in a week. Job ID: [id number] [id number]
== END 2020-07-05 17:44 | disposition home or self-care (01) | DRG 37 ==
LOC: ERS 01:01 → 2SE 02:03 → OBSVTOIN 07-03 11:51 → CCU 07-04 15:50 → 2SE 07-05 08:28
PROVIDERS: ADMIT Family Medicine; ATTEND Family Medicine
PROC: 03CK0ZZ Extirpation of Matter from Right Internal Carotid Artery, Open Approach (ICD-10-PCS; principal; 2020-07-04)
PROC: 03CM0ZZ Extirpation of Matter from Right External Carotid Artery, Open Approach (ICD-10-PCS; 2020-07-04)
PROC: 03UM0JZ Supplement Right External Carotid Artery with Synthetic Substitute, Open Approach (ICD-10-PCS; 2020-07-04)
PROC: 03UK0JZ Supplement Right Internal Carotid Artery with Synthetic Substitute, Open Approach (ICD-10-PCS; 2020-07-04)
DX: I65.21 Occlusion and stenosis of right carotid artery (principal); D61.810 Antineoplastic chemotherapy induced pancytopenia; E87.2 Acidosis; C78.7 Secondary malignant neoplasm of liver and intrahepatic bile duct; E22.2 Syndrome of inappropriate secretion of antidiuretic hormone; E03.9 Hypothyroidism, unspecified; I25.10 Atherosclerotic heart disease of native coronary artery without angina pectoris; J44.9 Chronic obstructive pulmonary disease, unspecified; D51.9 Vitamin B12 deficiency anemia, unspecified; K21.9 Gastro-esophageal reflux disease without esophagitis; I95.1 Orthostatic hypotension; E78.5 Hyperlipidemia, unspecified; Z90.49 Acquired absence of other specified parts of digestive tract; Z79.82 Long term (current) use of aspirin; Z88.8 Allergy status to other drugs, medicaments and biological substances; Z85.118 Personal history of other malignant neoplasm of bronchus and lung
CPT/HCPCS: 36415; 70496; 70498; 70551; 71045; 80048; 80053; 80061; 82533; 82607; 82746; 83605; 83930; 83935; 84295; 84300; 84439; 84443; 85025; 85027; 85610; 85730; 86340; 87040; 93306; 93880; 99285; C9113; J0692; J1100; J1642; J1644; J2370; J2543; J2704; J2720; J3010; J3370; J3490; Q9967